=== PATIENT | male | born 1995 | race Caucasian/White ===

== ENCOUNTER 2025-08-17 19:11 | Emergency (ER) | payer OTHER, BC ==
[~2025-08-17] VITALS: Ht 180.3 cm; Wt 83.2 kg
[2025-08-17 19:28] VITALS: BP 146/94; PULSE 94; RESP 18; TEMP 97.9; O2SAT 97
== END 2025-08-17 22:50 | disposition left against medical advice (07) ==
LOC: EMS 19:16
DX: M54.50 Low back pain, unspecified (principal); Z53.21 Procedure and treatment not carried out due to patient leaving prior to being seen by health care provider
CPT/HCPCS: 99281; Z7502